=== PATIENT | male | born 1955 | race Hispanic/Latino ===

== ENCOUNTER 2017-07-26 13:12 | Emergency (ER) | payer BC ==
[2017-07-26] MEDS ORDERED: HYDRALAZINE HCL 20 MG/ML VIAL ONE (13:32)
[2017-07-26] MEDS ORDERED: CYCLOBENZAPRINE HCL 10 MG TABLET ONE (13:49)
== END 2017-07-26 14:29 | disposition home or self-care (01) ==
LOC: EDH 13:12
DX: I10 Essential (primary) hypertension (principal); B34.9 Viral infection, unspecified; M62.838 Other muscle spasm; E11.9 Type 2 diabetes mellitus without complications; Z87.891 Personal history of nicotine dependence
CPT/HCPCS: 96374; 99284; J0360

== ENCOUNTER → 2017-07-30 | Outpatient (CLI) | payer BC | END | disposition home or self-care (01) | LOC: SHCH 07:58 | PROVIDERS: ATTEND Internal Medicine Cardiovascular Disease | DX: I10 Essential (primary) hypertension (principal) | CPT/HCPCS: 93975 ==

== ENCOUNTER 2023-04-21 12:39 | Inpatient (IN) | payer BC, MEDICARE ==
[~2023-04-21] VITALS: Ht 180.3 cm; Wt 84.3 kg
[2023-04-21] MEDS ORDERED: ADENOSINE 6MG VIAL IV ONE (12:47)
[2023-04-21] MEDS ORDERED: DILTIAZEM 125 MG/25 ML INJ 125 MG in 0.9%NACL 100ML 100 ML IV PRN (13:30)
[2023-04-21] MEDS ORDERED: DILTIAZEM 25MG INJ IVP PRN (13:30)
[2023-04-21] MEDS ORDERED: METOPROLOL TARTRATE 1 MG/ML 5ML VIAL IV ONE (13:30)
[2023-04-21 13:42] LABS: BASOPHILS # (AUTO) 0.06 K/uL (0.00-0.20); BASOPHILS % (AUTO) 0.4 % (0.0-5.0); EOSINOPHILS # (AUTO) 0.05 K/uL (0.00-0.70); EOSINOPHILS % (AUTO) 0.4 % (0.0-8.0); HEMATOCRIT 47.4 % (42-54); IMMATURE GRANULOCYTE ABSOLUTE 0.09 K/uL (0-1); LYMPHOCYTES % (AUTO) 14.1 % (21.0-51.0); MEAN CORPUSCULAR HEMOGLOBIN 30.9 pg (27.0-33.0); MEAN CORPUSCULAR HGB CONC 33.8 g/dL (32.0-36.0); MEAN CORPUSCULAR VOLUME 91.7 fL (79-99); MONOCYTES % (AUTO) 7.4 % (3.0-13.0); NEUTROPHILS # (AUTO) 10.7 K/uL (1.8-7.7); NEUTROPHILS % (AUTO) 77.1 % (40.0-77.0); PLATELET COUNT (AUTO) 138 K/uL (130-400); RED BLOOD CELL COUNT(AUTO) 5.17 MIL/uL (4.50-6.20); RED CELL DISTRIBUTION WIDTH 12.9 % (11.0-15.5); WHITE BLOOD COUNT (AUTO) 13.9 K/uL (4.8-10.8)
[2023-04-21 13:49] LABS: CREATININE 1.5 mg/dL (0.5-1.5); POTASSIUM 3.8 mmol/L (3.5-5.1)
[2023-04-21 13:53] LABS: INR 0.97 (0.85-1.15); PROTHROMBIN TIME 11.3 SEC (9.6-11.6)
[2023-04-21 13:54] LABS: ALBUMIN 3.8 g/dL (3.5-5.0); BILIRUBIN,TOTAL 0.4 mg/dL (0.2-1.0); TOTAL PROTEIN, SERUM 7.1 g/dL (6.0-8.3)
[2023-04-21 13:55] LABS: PARTIAL THROMBOPLASTIN TIME 29.9 SEC (26.3-35.5)
[2023-04-21] MEDS ORDERED: ASPI-1197 PO (14:51)
[2023-04-21] MEDS ORDERED: SPIR25TA6 PO (14:51)
[2023-04-21] MEDS ORDERED: ATOR40TA71 PO (14:51)
[2023-04-21] MEDS ORDERED: APIX5TAB PO (14:51)
[2023-04-21] MEDS ORDERED: HYDR100T27 PO (14:51)
[2023-04-21] MEDS ORDERED: CLOP75TA32 PO (14:51)
[2023-04-21] MEDS ORDERED: NITROGLYCERIN 0.4 MG SL TAB SL PRN (15:00)
[2023-04-21] MEDS ORDERED: DIPHENHYDRAMINE HCL 25 MG CAPSULE PO PRN (15:00)
[2023-04-21] MEDS ORDERED: ACETAMINOPHEN 325 MG TAB PO PRN (15:00)
[2023-04-21] MEDS ORDERED: ACETAMINOPHEN WITH CODEINE 1 TAB TAB PO PRN (15:00)
[2023-04-21] MEDS ORDERED: GLUCAGON 1MG KIT 1 MG ML IM PRN (15:00)
[2023-04-21] MEDS ORDERED: ONDANSETRON 4MG INJ IV PRN (15:00)
[2023-04-21] MEDS ORDERED: HYDRALAZINE 20MG/ML VIAL IV PRN (15:00)
[2023-04-21] MEDS ORDERED: DEXTROSE 50%-WATER 50 ML DISP.SYRIN IV PRN (15:00)
[2023-04-21] MEDS ORDERED: GUAIFENESIN-DM 200/20 MG 10 ML PO PRN (15:00)
[2023-04-21] MEDS ORDERED: MAG/ALUM/SIMETH 30 ML UDCUP PO PRN (15:00)
[2023-04-21] MEDS ORDERED: LACTULOSE 20 GM/30 ML UDCUP PO PRN (15:00)
[2023-04-21 15:12] LABS: APPEARANCE,URINE CLEAR (CLEAR); BILIRUBIN,URINE NEGATIVE (NEGATIVE); COLOR,URINE LIGHT-YELLOW (YELLOW); GLUCOSE, URINE (UA) >=1000 mg/dL (NEGATIVE); KETONES,URINE 10 mg/dL (NEGATIVE); LEUKOCYTE ESTERASE ,URINE 25 Leu/uL (NEGATIVE); NITRATE,URINE NEGATIVE (NEGATIVE); OCCULT BLOOD,URINE NEGATIVE (NEGATIVE); PROTEIN,URINE 70 mg/dL (NEGATIVE); UROBILINOGEN,URINE 0.2 mg/dL (0.2-1.0)
[2023-04-21 15:15] LABS: ADD UA MICROSCOPIC YES
[2023-04-21 15:20] LABS: BACTERIA,URINE MOD /HPF (None Seen); MUCUS,URINE RARE LPF (None Seen); SQUAMOUS EPITHELIAL CELL,UR RARE /HPF (0-2)
[2023-04-21] MEDS: CEFTRIAXONE 1G VIAL IV SCH (15:21)
[2023-04-21 15:31] LABS: HEMOGLOBIN A1C 8.5 % (4.0-6.0)
[2023-04-21] MEDS: INSULIN HUMULIN R 100 UNIT/ML 3ML SQ SCH ×2 (16:30→20:17)
[2023-04-21] MEDS ORDERED: HYDRALAZINE 25MG TABLET ONE (19:34)
[2023-04-21] MEDS: HYDRALAZINE 25MG TABLET PO SCH (19:40)
[2023-04-21] MEDS: METOPROLOL TARTRATE 25 MG TAB PO SCH (19:40)
[2023-04-21] MEDS: FAMOTIDINE 20MG VIAL IV SCH (19:40)
[2023-04-21] MEDS: ENOXAPARIN SODIUM 80 MG/0.8 ML SQ SCH (19:41)
[2023-04-21 23:14] VITALS: BP 173/98; PULSE 73; RESP 22
[2023-04-21] MEDS ORDERED: DILTIAZEM 125 MG/NS 125ML IV SCH ×2 (23:30)
[2023-04-21 23:45] VITALS: O2SAT 97
[2023-04-21 23:51] VITALS: BP 157/102; PULSE 75; RESP 20
[2023-04-22 04:00] VITALS: BP 175/119; PULSE 83; RESP 22
[2023-04-22] MEDS ORDERED: CLONIDINE HCL 0.1 MG TABLET PO ONE (05:00)
[2023-04-22] MEDS: INSULIN HUMULIN R 100 UNIT/ML 3ML SQ SCH ×2 (06:11→11:29)
[2023-04-22 07:54] VITALS: BP 149/101; PULSE 75; RESP 22
[2023-04-22 07:55] VITALS: O2SAT 99
[2023-04-22] MEDS: METOPROLOL TARTRATE 25 MG TAB PO SCH (08:39)
[2023-04-22] MEDS: FAMOTIDINE 20MG VIAL IV SCH (08:39)
[2023-04-22] MEDS: HYDRALAZINE 25MG TABLET PO SCH ×2 (08:39→14:50)
[2023-04-22] MEDS: ENOXAPARIN SODIUM 80 MG/0.8 ML SQ SCH (08:40)
[2023-04-22] MEDS ORDERED: ATORVASTATIN 40 MG TABLET PO SCH (09:00)
[2023-04-22] MEDS ORDERED: SPIRONOLACTONE 25 MG TAB PO SCH (09:00)
[2023-04-22] MEDS ORDERED: CLOPIDOGREL 75MG TAB PO SCH (09:00)
[2023-04-22] MEDS ORDERED: APIXABAN 5 MG TABLET PO SCH (09:00)
[2023-04-22] MEDS ORDERED: ASPIRIN 81MG CHEW TAB PO SCH (09:00)
[2023-04-22] MEDS ORDERED: AMLODIPINE 5 MG TAB PO SCH (10:30)
[2023-04-22 11:07] VITALS: BP 167/98; PULSE 73
[2023-04-22] MEDS: CEFTRIAXONE 1G VIAL IV SCH (14:49)
[2023-04-22 14:51] VITALS: BP 160/106; PULSE 77; RESP 20
[2023-04-22] MEDS ORDERED: VERAPAMIL HCL 80 MG TABLET PO SCH (15:00)
[2023-04-22] MEDS ORDERED: VERAPAMIL HCL 240 MG SRTAB PO SCH (15:15)
[2023-04-22] MEDS ORDERED: VERA240T96 PO (16:10)
[2023-04-22] MEDS ORDERED: AMLO5TAB4 PO (16:10)
[2023-04-22] MEDS ORDERED: METO25 PO (16:10)
[2023-04-23] MEDS ORDERED: VERAPAMIL HCL 240 MG SRTAB PO SCH (09:00)
== END 2023-04-22 17:26 | disposition home or self-care (01) | DRG 309 ==
LOC: EDH 12:39 → EDHIP 14:44 → 2AH 22:51
PROVIDERS: ADMIT Hospitalist; ATTEND Hospitalist
DX: I47.19 Other supraventricular tachycardia (principal); E87.20 Acidosis, unspecified; I13.0 Hypertensive heart and chronic kidney disease with heart failure and stage 1 through stage 4 chronic kidney disease, or unspecified chronic kidney disease; I50.22 Chronic systolic (congestive) heart failure; I24.89 Other forms of acute ischemic heart disease; N39.0 Urinary tract infection, site not specified; I16.0 Hypertensive urgency; N18.32 Chronic kidney disease, stage 3b; E11.22 Type 2 diabetes mellitus with diabetic chronic kidney disease; E78.5 Hyperlipidemia, unspecified; I25.10 Atherosclerotic heart disease of native coronary artery without angina pectoris; I48.91 Unspecified atrial fibrillation; Z79.01 Long term (current) use of anticoagulants; Z82.49 Family history of ischemic heart disease and other diseases of the circulatory system; Z83.3 Family history of diabetes mellitus; Z86.73 Personal history of transient ischemic attack (TIA), and cerebral infarction without residual deficits
CPT/HCPCS: 36415; 71045; 80053; 81001; 82550; 82948; 83036; 83605; 83735; 84145; 84484; 85025; 85610; 85730; 87040; 87077; 87088; 87186; 93005; 96365; 96375; 99291; G0378; J0153; J0360; J0696; J1650; J1815; J3490

== ENCOUNTER 2023-05-23 09:39 | Emergency (ER) | payer BC, MEDICARE ==
[~2023-05-23] VITALS: Ht 180.3 cm; Wt 85.7 kg
[~2023-05-23 09:39] MED LIST: AMLO5TAB4 PO; APIX5TAB PO; ASPI-1197 PO; ATOR40TA71 PO; CLOP75TA32 PO; HYDR100T27 PO; METO25 PO; SPIR25TA6 PO; VERA240T96 PO
[2023-05-23] MEDS ORDERED: ADENOSINE 6MG VIAL IV ONE ×4 (09:46→10:30)
[2023-05-23 09:59] LABS: BASOPHILS # (AUTO) 0.05 K/uL (0.00-0.20); BASOPHILS % (AUTO) 0.4 % (0.0-5.0); EOSINOPHILS # (AUTO) 0.04 K/uL (0.00-0.70); EOSINOPHILS % (AUTO) 0.3 % (0.0-8.0); HEMATOCRIT 46.3 % (42-54); IMMATURE GRANULOCYTE ABSOLUTE 0.07 K/uL (0-1); LYMPHOCYTES # (AUTO) 1.7 K/uL (1.0-4.8); LYMPHOCYTES % (AUTO) 12.9 % (21.0-51.0); MEAN CORPUSCULAR HEMOGLOBIN 31.3 pg (27.0-33.0); MEAN CORPUSCULAR HGB CONC 33.9 g/dL (32.0-36.0); MEAN CORPUSCULAR VOLUME 92.4 fL (79-99); MONOCYTES # (AUTO) 0.9 K/uL (0.1-1.0); MONOCYTES % (AUTO) 6.6 % (3.0-13.0); NEUTROPHILS # (AUTO) 10.3 K/uL (1.8-7.7); NEUTROPHILS % (AUTO) 79.3 % (40.0-77.0); PLATELET COUNT (AUTO) 167 K/uL (130-400); RED BLOOD CELL COUNT(AUTO) 5.01 MIL/uL (4.50-6.20); RED CELL DISTRIBUTION WIDTH 13.1 % (11.0-15.5)
[2023-05-23 10:10] LABS: CREATININE 1.8 mg/dL (0.5-1.5); POTASSIUM 4.2 mmol/L (3.5-5.1)
[2023-05-23] MEDS ORDERED: AMIODARONE 150MG VIAL IV STA (10:12)
[2023-05-23 10:14] LABS: ALBUMIN 3.6 g/dL (3.5-5.0); MAGNESIUM 1.9 mg/dL (1.80-2.40); TOTAL PROTEIN, SERUM 7.3 g/dL (6.0-8.3)
[2023-05-23] MEDS ORDERED: AMIODARONE 900MG VIAL IV ONE (10:15)
[2023-05-23 10:42] VITALS: BP 150/98; PULSE 77; RESP 20; O2SAT 100
[2023-05-23 10:50] LABS: B-TYPE NATRIURETIC PEPTIDE 505 pg/mL (0-100)
[2023-05-26] MEDS ORDERED: LOSA25TA41 PO (17:26)
[2023-05-26] MEDS ORDERED: DAPA10TA PO (17:26)
[2023-05-26] MEDS ORDERED: BUSP10TA3 PO (17:26)
[2023-05-26] MEDS ORDERED: METF-446 PO (17:26)
== END 2023-05-23 11:42 | disposition home or self-care (01) ==
LOC: EDH 09:39
DX: I47.10 Supraventricular tachycardia, unspecified (principal); E11.65 Type 2 diabetes mellitus with hyperglycemia; I10 Essential (primary) hypertension; Z79.01 Long term (current) use of anticoagulants; Z79.02 Long term (current) use of antithrombotics/antiplatelets; Z79.82 Long term (current) use of aspirin; Z79.899 Other long term (current) drug therapy
CPT/HCPCS: 99284; 96374; 71045; 96375; 83735; 84484; 80053; 83880; 85025; 36415; 93005 ×6; J0153 ×2; J0282

== ENCOUNTER → 2023-05-26 | Outpatient (CLI) | payer BC, MEDICARE ==
[~2023-05-26] VITALS: Ht 180.3 cm; Wt 81.1 kg
[~2023-05-26] MED LIST changes: +BUSP10TA3 PO; +DAPA10TA PO; +LOSA25TA41 PO; +METF-446 PO
[2023-05-26 11:58] LABS: BASOPHILS # (AUTO) 0.06 K/uL (0.00-0.20); BASOPHILS % (AUTO) 0.6 % (0.0-5.0); EOSINOPHILS # (AUTO) 0.06 K/uL (0.00-0.70); EOSINOPHILS % (AUTO) 0.6 % (0.0-8.0); IMMATURE GRANULOCYTE ABSOLUTE 0.03 K/uL (0-1); LYMPHOCYTES # (AUTO) 1.6 K/uL (1.0-4.8); LYMPHOCYTES % (AUTO) 17.3 % (21.0-51.0); MEAN CORPUSCULAR HEMOGLOBIN 30.7 pg (27.0-33.0); MEAN CORPUSCULAR HGB CONC 33.4 g/dL (32.0-36.0); MEAN CORPUSCULAR VOLUME 91.9 fL (79-99); MONOCYTES # (AUTO) 0.7 K/uL (0.1-1.0); MONOCYTES % (AUTO) 7.7 % (3.0-13.0); NEUTROPHILS % (AUTO) 73.5 % (40.0-77.0); PLATELET COUNT (AUTO) 173 K/uL (130-400); RED BLOOD CELL COUNT(AUTO) 4.79 MIL/uL (4.50-6.20); WHITE BLOOD COUNT (AUTO) 9.5 K/uL (4.8-10.8)
[2023-05-26 12:12] LABS: INR 0.94 (0.85-1.15); PROTHROMBIN TIME 10.9 SEC (9.6-11.6)
[2023-05-26 12:13] LABS: PARTIAL THROMBOPLASTIN TIME 26.3 SEC (26.3-35.5)
[2023-05-26 12:17] LABS: CREATININE 1.3 mg/dL (0.5-1.5); POTASSIUM 3.9 mmol/L (3.5-5.1)
[2023-05-26 12:20] VITALS: BP 192/113; PULSE 72; RESP 12
[2023-05-27 13:15] VITALS: BP 180/105; PULSE 65; RESP 14
== END | disposition home or self-care (01) ==
LOC: DAH 11:13 → EDSTATUS 16:00 → DAH 05-27 11:40
PROVIDERS: ATTEND Internal Medicine Cardiovascular Disease
DX: I49.3 Ventricular premature depolarization (principal); I47.10 Supraventricular tachycardia, unspecified
CPT/HCPCS: 36415; 80048; 82948; 85025; 85610; 85730; 93005

== ENCOUNTER → 2024-04-21 | Outpatient (CLI) | payer MEDICARE ==
[~2024-04-21] MED LIST changes: +AEC81 PO; -AMLO5TAB4 PO; +AMOX1TAB16 PO; -ASPI-1197 PO; -CLOP75TA32 PO; +HYDR100T15 PO; -HYDR100T27 PO; +LOSA100T59 PO; -LOSA25TA41 PO; +METO200T37 PO; -METO25 PO; -SPIR25TA6 PO; -VERA240T96 PO
--- NOTE | 2024-04-21 14:34 | HMCIMG ---
CT ABD/PEL WO CON RENAL/APPY HISTORY: Hepatosplenomegaly COMPARISON: 08/30/2013 TECHNIQUE: Multiple sequential axial images of the abdomen and pelvis were obtained from the dome of the diaphragm through symphysis pubis. Patient was not given contrast through intravenous route. Oral contrast was not given. FINDINGS: Small right pleural effusion is seen. Right lower lung pulmonary infiltrates are seen with subsegmental atelectasis. Note is again made of multiple hepatic cysts with the largest in the low measuring 7.1 cm. Gallstones are seen in the gallbladder. There is no evidence of parenchymal disease or pulmonary nodule of the visualized lower lungs. Degenerative changes of the thoracolumbar spine are present. The heart is not enlarged. Liver is enlarged measuring 17 cm. Spleen measures 8.7 cm. The liver, spleen, adrenal glands and pancreas are unremarkable. There is no evidence of hydronephrosis bilaterally. No evidence of renal stone is seen. Fecal material is seen in the colon. There is diverticulosis. There are normal size retroperitoneal and mesenteric lymph nodes. No ascites is seen. Atherosclerotic changes are present. Pelvic sidewalls are symmetric bilaterally. Bladder is well distended without wall thickening. IMPRESSION: 1. Diverticulosis. Fecal material is seen in the colon. Hepatic cysts. Gallstones in the gallbladder. CT was performed with one or more following dose reduction techniques: automated exposure control, adjustment of the mA and kv according to patient's size, or use of a iterative reconstruction technique.
== END | disposition home or self-care (01) ==
LOC: RAH 13:19
PROVIDERS: ATTEND Family Medicine
DX: K80.20 Calculus of gallbladder without cholecystitis without obstruction (principal); K57.30 Diverticulosis of large intestine without perforation or abscess without bleeding; K76.89 Other specified diseases of liver; M47.815 Spondylosis without myelopathy or radiculopathy, thoracolumbar region; R16.2 Hepatomegaly with splenomegaly, not elsewhere classified; J90 Pleural effusion, not elsewhere classified; J98.11 Atelectasis; R74.01 Elevation of levels of liver transaminase levels
CPT/HCPCS: 74176

== ENCOUNTER 2025-01-21 09:21 | Emergency (ER) | payer OTHER, MEDICARE ==
[~2025-01-21] VITALS: Ht 180.3 cm; Wt 77.1 kg
[2025-01-21 09:57] LABS: IMMATURE GRANULOCYTE ABSOLUTE 0.04 K/uL (0-1); NUCLEATED RED BLOOD CELLS 0.0 % (0.0-0.19); PLATELET COUNT (AUTO) 152 K/uL (130-400); RED BLOOD CELL COUNT(AUTO) 4.76 MIL/uL (4.50-6.20); RED CELL DISTRIBUTION WIDTH 13.4 % (11.0-15.5); WHITE BLOOD COUNT (AUTO) 9.4 K/uL (4.8-10.8)
[2025-01-21 10:09] LABS: CREATININE 1.4 mg/dL (0.5-1.3); GLOMERULAR FILTR. RATE CALC 55.0 mL/min (>90); GLUCOSE,RANDOM 140.0 mg/dL (70-105); SODIUM SERUM 137.0 mmol/L (136-145); UREA NITROGEN, BLOOD 20.0 mg/dL (7-18)
--- NOTE | 2025-01-21 13:25 | ERN ---
ED Note History of Present Illness Stated Complaint: HIGH BLOOD PRESSURE Chief Complaint: Hypertension Time Seen by MD: 09:24 Dictation: 69-year-old male presenting to the emergency department with a history of hypertension and AFib, history of stroke. Presenting to the emergency department for high blood pressure episode was seen in clinic today in his blood pressure was in the 220s no symptoms no chest pain no shortness a breath or neuro symptoms patient reports his blood pressure is usually in the 180s 190s. Allergies: Coded Allergies: No Known Drug Allergies (Verified Allergy, 08/27/13) Home Meds Active Scripts Amoxicillin/Potassium Clav (Amox Tr-K Clv 875-125 mg Tab) 875 Mg-125 Mg Tablet, 1 EACH PO BID, #14 TAB 0 Refills Prov:NAHUM WALKER 08/14/23 Metoprolol Succinate (Metoprolol Succinate) 200 Mg Tab.er.24h, 100 MG PO DAILY, #30 TAB Prov:SAMUEL STEVENSON MD 08/14/23 Reported Medications Buspirone HCl (Buspirone HCl) 10 Mg Tablet, 10 MG PO TID, TAB 08/14/23 Apixaban (Eliquis) 5 Mg Tablet, 5 MG PO BID, TAB 08/14/23 Hydralazine HCl (Hydralazine HCl) 100 Mg Tablet, 100 MG PO TID, TAB 08/14/23 Losartan Potassium (Losartan Potassium) 100 Mg Tablet, 100 MG PO DAILY, TAB 08/14/23 Metformin HCl (Metformin HCl) 1,000 Mg Tablet, 1000 MG PO BID, TAB 08/14/23 Atorvastatin Calcium (Atorvastatin Calcium) 40 Mg Tablet, 40 MG PO DAILY, TAB 08/14/23 Aspirin (ASPIRIN 81 MG ECTAB) 81 Mg Ectab, 81 MG PO DAILY, TAB.EC 08/14/23 Dapagliflozin Propanediol (Farxiga) 10 Mg Tablet, 10 MG PO DAILY, TAB 08/14/23 Past Medical History Past Medical History: Diabetes-Type II, Hypertension Surgical History: None Surgical History Other: AAA REPAIR Family History: DM, HTN Social History: Negative Review of System Dictation Constitutional: Negative for fever,chills, and weight loss Eyes: Negative for injury, pain,redness, and discharge ENT: Negative for injury,pain or swelling Cardiovascular: Negative for chest pain, palpitations, and edema Respiratory: Negative for shortness of breath, cough, and wheezing, Abdomen/GI: Negative for abdominal pain, nausea, vomiting, diarrhea, and constipation Back: Negative for injury and pain : Negative for injury, bleeding and discharge MS/Extremity: Negative for injury and deformity Skin: Negative for rash, and discoloration Neuro: Negative for headache, weakness, numbness, tingling, and seizure Psych: Negative for suicide ideation, homicidal ideation, and hallucinations Initial Vital Sign VS Vital Signs Date Time Temp Pulse Resp B/P (MAP) Pulse Ox O2 Delivery O2 Flow Rate FiO2 01/21/25 09:23 97.3 67 18 206/119 99 Room Air 0 01/21/25 09:25 21 Physical Exam Dictation General: awake, alert, NAD Head/Face: Normocephalic, atraumatic Eyes: PERRL, EOMI, vision at baseline ENT: oral cavity clear, TMs clear, no signs of infection Neck: Trachea midline, supple, no nuchal rigidity Cardiovascular: RRR, normal S1/S2, No MRGs, no JVD Respiratory: CTAB, no respiratory distress, No rales or wheezes Abdomen: Soft, non-tender, non-distended, normal bowel sounds, no guarding or rebound. Skin: Warm, dry, normal turgor, no rash MS/Extremity: Pulses equal, no cyanosis, neurovascular intact, FROM Neuro: COAx4, GCS 15, strength 5/5, CN 2-12 intact, at baseline Results (Laboratory/Radiology) Laboratory/Radiology Laboratory Tests Test 01/21/25 09:45 White Blood Count 9.4 K/uL (4.8-10.8) Red Blood Count 4.76 MIL/uL (4.50-6.20) Hemoglobin 15.2 g/dL (14.0-18.0) Hematocrit 45.3 % (42-54) Mean Corpuscular Volume 95.2 fL (79-99) Mean Corpuscular Hemoglobin 31.9 pg (27.0-33.0) Mean Corpuscular Hemoglobin Concent 33.6 g/dL (32.0-36.0) Red Cell Distribution Width 13.4 % (11.0-15.5) Platelet Count 152 K/uL (130-400) Mean Platelet Volume 12.8 fL (7.5-10.5) H Immature Granulocyte % (Auto) 0.4 % (0-1) Neutrophils (%) (Auto) 76.7 % (40.0-77.0) Lymphocytes (%) (Auto) 15.6 % (21.0-51.0) L Monocytes (%) (Auto) 6.7 % (3.0-13.0) Eosinophils (%) (Auto) 0.3 % (0.0-8.0) Basophils (%) (Auto) 0.3 % (0.0-5.0) Neutrophils # (Auto) 7.2 K/uL (1.8-7.7) Lymphocytes # (Auto) 1.5 K/uL (1.0-4.8) Monocytes # (Auto) 0.6 K/uL (0.1-1.0) Eosinophils # (Auto) 0.03 K/uL (0.00-0.70) Basophils # (Auto) 0.03 K/uL (0.00-0.20) Absolute Immature Granulocyte (auto 0.04 K/uL (0-1) Nucleated Red Blood Cells 0.0 % (0.0-0.19) Sodium Level 137 mmol/L (136-145) Potassium Level 3.7 mmol/L (3.5-5.1) Chloride Level 97 mmol/L (101-111) L Carbon Dioxide Level 31 mmol/L (21-32) Blood Urea Nitrogen 20 mg/dL (7-18) H Creatinine 1.4 mg/dL (0.5-1.3) H Glomerular Filtration Rate Calc 55 mL/min (>90) Random Glucose 140 mg/dL (70-105) H Total Calcium 10.4 mg/dL (8.5-10.1) H Troponin I High Sensitivity 29 ng/L (4-75) Labs Reviewed?: Yes EKG Comment: HR 66, atrial fib, no stemi ED Course ED Course Orders Procedure Category Date Status Time 12 Lead Ekg Tracing- EKG 01/21/25 Logged Technical 09:44 Basic Metabolic Panel LAB 01/21/25 Complete 09:44 Cbc With Differential LAB 01/21/25 Complete 09:44 Troponin I High LAB 01/21/25 Complete Sensitivity 09:44 Hydralazine 20mg Inj PHA 01/21/25 Complete (Apresoline 20mg In 10:00 Clonidine Hcl 0.1 Mg PHA 01/21/25 Logged Tablet (Catapres 0. 13:30 Current Medications Medications (Trade) Dose Ordered Sig/John Route PRN Reason Start Time Stop Time Status Last Admin Dose Admin Hydralazine HCl (APRESOLine 20MG INJ) 5 mg ONCE ONCE IV 01/21/25 10:00 01/21/25 10:01 DC 01/21/25 10:06 Vital Signs Date Time Temp Pulse Resp B/P (MAP) Pulse Ox O2 Delivery O2 Flow Rate FiO2 01/21/25 11:52 97.9 70 18 178/100 99 Room Air* 0 21 01/21/25 10:39 97.9 69 18 182/93 99 Room Air* 0 21 01/21/25 09:25 97.3 67 18 206/119 99 Room Air* 0 21 01/21/25 09:23 97.3 67 18 206/119 99 Room Air 0 Medical Decision Making MDM MDM: Differential diagnosis: Rationale: Tests considered and ordered secondary to shared decision making include: Previous outside records reviewed: Old ER visits. Risk of complication and/or morbidity or mortality of patient management: None Medications-Per medication reconciliation Need for hospitalization: Patient does not meet criteria for hospitalization. Need for emergency major/minor surgery: No There are no social concerns with this patient. Prescription drug management Prescriptions will include symptomatic care Patient's prior external medical records from other ER visits were reviewed by me as indicated. Prior testing and results from previous visits were reviewed. Prior tests were taken into account with medical decision making and resource utilization, independent historian/historians were used to obtain complete medical history. I independently interpreted the test that were performed, results were reviewed by me and considered findings on radiology if ordered. Medical management and examination interpretation discussions were had by me with other qualified healthcare professionals as indicated for the patient's care. 69-year-old male with hypertensive episode asymptomatic negative workup stable for discharge wide pulse pressure and blood pressure now back to his baseline. DX & DISP Disposition: Discharge Departure Impression: Primary Impression: Hypertension Condition: Stable Referrals: JACKIE CANO MD (PCP) SAMANTA OCRRIGAN MD Jan 21, 2025 13:25
[2025-01-21 14:05] VITALS: BP 179/94; PULSE 65; RESP 18; TEMP 97.9; O2SAT 99
--- NOTE | 2025-01-21 21:34 | EKG ---
[facility] Test Date: 2025-01-21 Test Time: 09:36:41 Pat Name: CARLOS ENRIQUE STOUT Department: [facility] Room: Gender: M Vp Of Technology: [id number] : [id number] Requested By: SAMANTA CORRIGAN Order Number: [id number] Reading MD: Cleve Ortega Measurements Intervals [place] Rate: 66 P: 0 MD: 0 QRS: 40 QRSD: 107 T: 61 QT: 463 QTc: 487 Interpretive Statements Atrial fibrillation Anteroseptal infarct, age indeterminate Compared to ECG 03/31/2024 22:29:56 Myocardial infarct finding now present Sinus rhythm no longer present Atrial premature complex(es) no longer present Left ventricular hypertrophy no longer present Q waves no longer present T-wave abnormality no longer present Electronically Signed On 01-22-2025 19:48:22 CDT by Cleve Ortega Please click the below link to view image of tracing.
== END 2025-01-21 14:18 | disposition home or self-care (01) ==
LOC: EDH 09:21
DX: I10 Essential (primary) hypertension (principal); E11.9 Type 2 diabetes mellitus without complications; Z79.01 Long term (current) use of anticoagulants; Z79.82 Long term (current) use of aspirin; Z79.84 Long term (current) use of oral hypoglycemic drugs; Z79.899 Other long term (current) drug therapy
CPT/HCPCS: 99285; 84484; 80048; 85025; 36415; 93005; J0360